=== PATIENT | male | born 1955 | race Caucasian/White ===

== ENCOUNTER 2017-03-13 10:18 | Day surgery (SDC) | payer OTHER ==
[2017-03-12 13:13] VITALS: BMI 47.5
[2017-03-13] MEDS ORDERED: Propofol 200 MG/20 ML VIAL ONE (14:01)
--- NOTE | 2017-03-13 15:07 | OP ---
DATE OF PROCEDURE: 03/13/2017 PROCEDURE: Colonoscopy. SURGEON: Brian King M.D. PREOPERATIVE DIAGNOSES: 1. Colorectal cancer screening. 2. Coronary artery disease with regard to his animal rescuer, Dr. Corey Laws. POSTOPERATIVE DIAGNOSES: 1. Two polyps, one in the cecum and one in the sigmoid colon, both about 5 mm in size, removed by sn are polypectomy and submitted to Pathology. 2. Mild diverticulosis coli. RECOMMENDATIONS: 1. Await histopathology. 2. Repeat colonoscopy in 5 years. 3. High fiber diet for diverticulosis coli. ANESTHESIA: TIVA. PROCEDURE IN DETAIL: After the patient was informed of the risk, benefits and complications of endos copy including perforation, bleeding, informed consent was obtained. The patient was brought to the endoscopy suite where he was sedated in gradual fashion. Once he was comfortable a rectal examinatio n was performed. The scope was advanced through anal canal through the colon to cecum was identified by the ileocecal valve and appendiceal orifice. There was a good prep. There was a 5 mm polyp in the cecum which was removed by snare polypectomy. It was mildly pedunculat ed. There was also a 5-7 mm polyp that was pedunculated in the sigmoid colon that was removed by sna re polypectomy as well. There was diverticulosis coli in left colon. Retroflexed views in the rectu m were normal. The scope was removed. The patient tolerated the procedure well with no complication s.
== END 2017-03-13 14:28 | disposition home or self-care (01) ==
LOC: SDC 10:18
PROVIDERS: ATTEND Internal Medicine Gastroenterology
PROC: 0DBN8ZX Excision of Sigmoid Colon, Via Natural or Artificial Opening Endoscopic, Diagnostic (ICD-10-PCS; principal; 2017-03-13)
PROC: 0DBH8ZX Excision of Cecum, Via Natural or Artificial Opening Endoscopic, Diagnostic (ICD-10-PCS; principal; 2017-03-13)
DX: Z12.11 Encounter for screening for malignant neoplasm of colon (principal); D12.0 Benign neoplasm of cecum; D12.5 Benign neoplasm of sigmoid colon; K57.30 Diverticulosis of large intestine without perforation or abscess without bleeding; I25.10 Atherosclerotic heart disease of native coronary artery without angina pectoris; I10 Essential (primary) hypertension; E66.9 Obesity, unspecified; E78.00 Pure hypercholesterolemia, unspecified; F32.9 Major depressive disorder, single episode, unspecified; N40.0 Benign prostatic hyperplasia without lower urinary tract symptoms; Z68.42 Body mass index [BMI] 45.0-49.9, adult; Z79.899 Other long term (current) drug therapy; Z98.890 Other specified postprocedural states; Z87.891 Personal history of nicotine dependence
CPT/HCPCS: 88305; J2704

== ENCOUNTER 2017-07-06 08:19 | Outpatient (CLI) | payer OTHER | END 2017-07-06 08:20 | disposition home or self-care (01) | LOC: DTY/OP 08:19 | PROVIDERS: ATTEND Specialist | DX: Z01.818 Encounter for other preprocedural examination (principal); E66.01 Morbid (severe) obesity due to excess calories | CPT/HCPCS: 97802 ==

== ENCOUNTER 2017-07-26 11:00 | Inpatient (IN) | payer OTHER ==
--- NOTE | 2017-07-24 08:20 | HP ---
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 He is at a desk most of the day. Once he came out of the field and began administrative work he has begun to gain weight. He has tried numerous weight loss e fforts without durable success. Comorbidities include hypertension, elevated cholesterol. He saw Dr Crystal Laws recently, in fact in 04/2017 had a negative cardiac stress test and was recommended to consi roe weight loss surgery. He is 5 foot 10, 373 pounds, 53 BMI. As stated above comorbidities include elevated cholesterol and hypertension. The patient has attended our weight loss seminars and is int erested in laparoscopic sleeve gastrectomy. He understands the risks and benefits associated with th is and questions have been answered. MEDICATIONS: Metoprolol 50 mg once a day, hydrochlorothiazide 25 mg once a day, irbesartan 300 mg on ce a day, fluoxetine 20 mg once a day, amlodipine 10 mg once a day, atorvastatin 40 mg a day, Uroxatr al 10 mg a day. ALLERGIES: Environmental seasonal. TOBACCO: Cessation 20 years ago. ALCOHOL: Socially. PAST SURGICAL HISTORY: Ventral hernia repair with mesh. Incision extending from above the umbilicus to below, hand surgery, deviated septum, hemorrhoidectomy, knee surgery, left meniscectomy 2001. He had a colonoscopy April 2017 that was normal at [facility]. REVIEW OF SYSTEMS: Ten point noncontributory. Recent cardiac stress test, Dr. Laws 04/2017. NOTE: The patient is followed by Dr. Summers as well as Dr. Laws. He lives in [place]. He is marrie d. PHYSICAL EXAMINATION: VITAL SIGNS: Weight 373 pounds, 5 foot 10 inches, 53 BMI, 107/59, 75, 98.8 degrees. HEENT: Unremarkable. LUNGS: Clear to auscultation. CARDIAC: Regular rate and rhythm without murmur or gallop. ABDOMEN: Obese, soft, nontender. EXTREMITIES: No ankle edema, no venous stasis changes. LYMPH: No lymphadenopathy neck, axilla, groins. NEURO: Intact. No focal deficits. SKIN: Normal. Sclerae nonicteric. ASSESSMENT AND PLAN: 1. Morbid obesity, 373 pounds, 5 foot 10 inches, 53 BMI. He is a good candidate for laparoscopic sl eeve gastrectomy. He understands the bariatric options. He understands the risk and benefits associ ated with bariatric surgery, namely laparoscopic sleeve gastrectomy. Questions have been answered. We will establish an appointment with the dietitian for dietary expectations perioperatively and an a ppointments with a clinical psychologist required in the program. He is committed to weight loss eff orts, follow up to have successful results. He understands he will need to make good food choices to ensure and maximize his success. 2. Attention deficit disorder. 3. Elevated cholesterol. 4. Hypertension. 5. Normal cardiac stress test by Dr. Laws in 04/2017. 6. 2017 normal colonoscopy.
[2017-07-26 11:09] VITALS: BMI 47.8
--- NOTE | 2017-07-27 07:36 | ADD-HP ---
ADDENDUM Jorden Fountain has completed our bariatric evaluation and attending the bariatric seminar, undergoing psychology evaluation, felt to be an excellent candidate. He has attended our dietary instructions for perioperative food selections. The patient has a long history of obesity without durable weight loss. Initial presentation, his weight is 373 pounds with BMI of 53. [place] body weight is 157 pound s. He presents for laparoscopic sleeve gastrectomy. He has obesity and social comorbidities includi ng hypertension, sleep apnea, and elevated cholesterol. He had a regular nuclear medicine stress mekhi t in April [address] Laws and was referred for bariatric surgery. He reports a normal colono scopy in the past. He has a history of smoking with cessation in 1984. 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 TOBACCO: None. ALCOHOL: None. MEDICATIONS: Metoprolol 50 mg once a day, hydrochlorothiazide 25 mg once a day, irbesartan 300 mg on ce a day, fluoxetine 20 mg a day, amlodipine 10 mg a day, atorvastatin 40 mg a day, Uroxatral 10 mg a day. ALLERGIES: Environmental Seasonal. SOCIAL HISTORY: Tobacco cessation 20 years ago. PAST SURGICAL HISTORY: Ventral hernia repair with mesh. Incision extending from above the umbilicus to below hand surgery, deviated septum, hemorrhoidectomy, knee surgery, left meniscectomy 2001, colo noscopy in April 2017, normal per [facility]. REVIEW OF SYSTEMS: Ten-point noncontributory. The patient followed Dr. Summers as well as Dr. Laws. He lives in [place]. He is . PHYSICAL EXAMINATION: VITAL SIGNS: Today patient is 5 foot. Last visit is 373 pounds, 53 BMI. Today is 353 pounds, 50 BM I. LUNGS: Clear to auscultation. CARDIAC: Regular rate and rhythm without murmur or gallop. ABDOMEN: Soft, nontender. EXTREMITIES: Unremarkable. ASSESSMENT AND PLAN: Morbid obesity. PLAN: Laparoscopic sleeve gastrectomy. Risk and benefits are discussed. Questions answered. The tanya basilio has lost 20 pounds since attending our bariatric program and he reports he has lost 25 pounds as he is 5 pounds heavier when he first presented to the seminar. His folic acid is slightly low at 5.8, borderline low vitamin B1of 69, low normal (normal 70-110). He understands risks, benefits of s urgery and we will proceed.
[2017-08-01] MEDS ORDERED: Bupivacaine HCl 0.5%/Epinephrine 1:200,000/PF 30 ml Vial ONE (06:39)
[2017-08-01] MEDS ORDERED: Fentanyl 250 MCG/5 ML VIAL ONE (07:15)
[2017-08-01] MEDS ORDERED: Scopolamine 1.5 mg/72 hour Patch ONE (07:27)
[2017-08-01] MEDS ORDERED: Ketorolac Tromethamine 30 MG/ML VIAL ONE (07:27)
[2017-08-01] MEDS ORDERED: Heparin 5,000 UNITS/ML VIAL ONE ×2 (07:27)
[2017-08-01] MEDS ORDERED: cefOXitin 2 GM, Syringe 1 ML in Sterile Water 10 ML SLOW IVP SCH ×4 (07:30)
[2017-08-01] MEDS ORDERED: Ondansetron HCl/PF 4 MG/2 ML Vial IVP PRN ×4 (09:14→18:21)
[2017-08-01] MEDS ORDERED: Morphine Sulfate 2 MG/ML SYRINGE SLOW IVP PRN ×2 (09:14)
[2017-08-01] MEDS ORDERED: Promethazine HCl 25 MG/ML VIAL SLOW IVP PRN ×2 (09:14)
[2017-08-01] MEDS ORDERED: Dextrose 50% Abboject 50 ML SYRINGE SLOW IVP PRN (09:39)
[2017-08-01] MEDS ORDERED: diphenhydrAMINE 50 MG/ML VIAL IVP PRN (09:39)
[2017-08-01] MEDS ORDERED: Morphine 4 MG/ML VIAL SLOW IVP PRN (09:39)
[2017-08-01] MEDS ORDERED: Hydrocodone-Acetamin 15 ML UDCUP PO PRN (09:39)
[2017-08-01] MEDS ORDERED: Dextrose 5% in Water 1,000 ML IV PRN (09:39)
[2017-08-01] MEDS ORDERED: hydrALAZINE 20 MG/ML VIAL SLOW IVP PRN (09:39)
--- NOTE | 2017-08-01 09:51 | OP ---
DATE OF PROCEDURE: 08/01/2017 PREOPERATIVE DIAGNOSES: Elevated cholesterol, hypertension, morbid obesity, 373 pounds, 53 BMI, init ial presentation 373, 53, BMI just prior to operation 353, 50 BMI. POSTOPERATIVE DIAGNOSES: Elevated cholesterol, hypertension, morbid obesity, 373 pounds, 53 BMI, ini tial presentation 373, 53, BMI just prior to operation 353, 50 BMI. PROCEDURES: Laparoscopic sleeve gastrectomy, 36 [place] bougie, completion upper endoscopy staple holly e within 4 cm of pylorus. Completion upper endoscopy. NOTE: Normal appearing soft malleable liver. Otherwise, abdominal cavity unremarkable. SURGEON: Dr. Kang Hirsch ANESTHESIA: General. Local 0.25% Marcaine with epinephrine 60 mL total volume used. The patient was taken to the operating room where under completion upper endoscopy visualizing the py lorus, scope passed with ease without restriction. No clips placed on the staple line to control a f ew foci of oozing. PROCEDURE IN DETAIL: The patient was taken to the operating room under general anesthesia, abdomen w as prepared with ChloraPrep, draped in routine fashion. Local anesthetic infiltrated into the skin a nd subcutaneous tissue about the op site. Upper midline abdominal incision made and pneumoperitoneum to 15 mmHg obtained with the Veress needle, replacing it with a 5 port, laparoscope inserted. Bilat eral far laterals subcostal incisions made and a 5 port placed. Bilateral upper abdominal incisions made mid clavicular lines and 15 mm port placed in left, a 12 mm port placed on the right and subxiph oid left incision made and a stab incision made with the trocar, the 5 port and a [facility] liver ret ractor inserted intraabdominally under laparoscopic visualization reflecting the left lobe of liver a nteriorly. Gastrocolic ligament taken down adjacent to the greater curvature distal stomach, dividin g this along the greater curvature, freeing the greater curvature up towards the angle of His. Angle of His was visualized. Posterior stomach adhesions taken down with the LigaSure. Gastrocolic ligam ent further taken down within 4 cm of the pylorus using the LigaSure. A #36 [place] bougie placed by Anesthesia orally under laparoscopic visualization directed to the pylorus along the lesser curvature and the stomach sleeve gastrectomy performed by firing the initial staple green load Endo-LENIN staple r and subsequent fires blue load against the bougie, allowing adequate space at the incisura and the angle of His. Once the stomach was completely divided, it was removed from the 15 port site and the 15 port site fascia approximated with GraNee needle 0 Vicryl suture under laparoscopic visualization. Good hemostasis obtained with clips placed on the staple line. I then went up to the head of the table and performed an upper endoscopy placing the endoscope per le ft os under direct visualization throughout the esophagus through the stomach sleeve, visualizing the pylorus without restriction without bleeding, removing the scope, decompressing the stomach, noting a normal esophagus. At this point, abdominal cavity irrigated and irrigant evacuated. Liver retract or removed. Good hemostasis noted. Irrigant and pneumoperitoneum evacuated. All this instruments r emoved and all skin incisions approximated with interrupted subdermal 4-0 Monocryl and DermaGlue appl ied.
[2017-08-01] MEDS ORDERED: Fentanyl 100 MCG/2 ML VIAL ONE ×2 (09:56→10:19)
[2017-08-01] MEDS ORDERED: [UNRECOGNIZED DRUG - REMARK] EA EYE PRN (10:15)
[2017-08-01] MEDS ORDERED: PHENYLEPHRINE-NS 100 MCG/ML 10 ML SYRINGE ONE (11:16)
[2017-08-01] MEDS ORDERED: PROPOFOL 200 MG/20 ML VIAL ONE (11:16)
[2017-08-01] MEDS ORDERED: Ondansetron HCl/PF 4 MG/2 ML Vial ONE (11:16)
[2017-08-01] MEDS ORDERED: Succinylcholine Chloride 20 MG/ML 10 ml SYRINGE FS ONE (11:16)
[2017-08-01] MEDS ORDERED: Glycopyrrolate 0.2 MG/ML 5 ML SYRINGE ONE (11:16)
[2017-08-01] MEDS ORDERED: ePHEDrine/0.9% NaCl/PF SYRINGE 50 mg/10 ml ONE (11:16)
[2017-08-01] MEDS ORDERED: Lidocaine 1% PF 5 ML VIAL ONE (11:16)
[2017-08-01] MEDS ORDERED: Pantoprazole 40 MG VIAL IVP SCH ×2 (12:00)
[2017-08-01] MEDS: Ketorolac Tromethamine 30 MG/ML VIAL IVP SCH ×3 (12:16→23:34)
[2017-08-01] MEDS: Acetaminophen 1,000 MG in Premix Bag 1 BAG IVPB SCH ×3 (12:17→23:33)
[2017-08-01] MEDS ORDERED: Ondansetron ODT 8 MG TAB SL PRN (18:21)
[2017-08-01] MEDS ORDERED: Ondansetron ODT 4 MG TAB PO PRN ×2 (18:21→18:29)
[2017-08-01] MEDS ORDERED: Ondansetron ODT 8 MG TAB PO PRN ×2 (18:21→18:29)
[2017-08-01] MEDS ORDERED: Metoclopramide HCl 10 MG/2 ML VIAL IVP PRN (18:22)
[2017-08-01] MEDS: D5 1/2 NS w/20 mEq KCL 1,000 ML IV SCH ×3 (18:44→23:38)
[2017-08-01] MEDS: Morphine 4 MG/ML VIAL SLOW IVP PRN (20:21)
[2017-08-01] MEDS ORDERED: Enoxaparin Sodium 40 MG/0.4 ML SYRINGE SC SCH (21:00)
[2017-08-02] MEDS: Morphine 4 MG/ML VIAL SLOW IVP PRN (02:20)
[2017-08-02 05:01] LABS: #Monocytes 0.6 thou/uL (0.11-0.59); #Neutrophils 7.1 thou/uL (1.40-6.50); %Basophils 0.2 % (0.0-1.0); %Eosinophils 0.3 % (0.0-10.0); %Monocytes 7.3 % (0.0-10.0); %Neutrophils 81.2 % (42.0-75.0); Hemoglobin 12.5 g/dL (14.0-18.0); Mean Corpuscular HGB CONC 33.1 g/dL (32.0-36.0); Mean Corpuscular Hemoglobin 29.8 pg (27.0-31.0); Mean Corpuscular Volume 89.8 fl (80.0-94.0); Mean Platelet Volume 8.6 fL (7.4-10.4); Platelet Count 226 thou/uL (130-400); RBC Distribution Width 12.1 % (11.5-14.5); Red Blood Cell (RBC) Count 4.21 mill/uL (4.70-6.10); White Blood Cell (WBC) Count 8.8 thou/uL (4.8-10.8)
[2017-08-02 05:07] LABS: Anion Gap 6 mmol/L (10-20); BUN (Urea Nitrogen) 19 mg/dL (8.4-25.7); Calc. Creatinine Clearance 168 mL/min (70-130); Carbon Dioxide 30 mmol/L (23-31); Chloride 104 mmol/L (98-107); Estimated GFR-MDRD 73; Glucose 120 mg/dL (80-115); Potassium 3.9 mmol/L (3.5-5.1); Sodium 136 mmol/L (136-145)
[2017-08-02] MEDS: Ketorolac Tromethamine 30 MG/ML VIAL IVP SCH (05:11)
[2017-08-02] MEDS: Acetaminophen 1,000 MG in Premix Bag 1 BAG IVPB SCH (05:12)
[2017-08-02] MEDS ORDERED: traMADol HCl 50 MG TAB PO PRN ×2 (08:00)
[2017-08-02 08:07] VITALS: BP 107/69; TEMP 98
[2017-08-02] MEDS ORDERED: Pantoprazole 40 MG VIAL IVP SCH ×2 (09:00)
[2017-08-02] MEDS ORDERED: FLUoxetine HCl 20 MG CAP PO SCH (09:00)
[2017-08-02] MEDS ORDERED: Amlodipine 10 MG TAB PO SCH (09:00)
[2017-08-02] MEDS ORDERED: Hydrocodone-Acetamin 15 ML UDCUP PO PRN (10:00)
[2017-08-02] MEDS ORDERED: Acetaminophen 500 MG TAB PO PRN (12:00)
--- NOTE | 2017-08-02 12:04 | PRG ---
DATE OF SERVICE: 08/02/2017 SUBJECTIVE: Mr. Fountain is doing well after laparoscopic sleeve gastrectomy today. He denies any n ausea or vomiting. He is tolerating liquids. OBJECTIVE: VITAL SIGNS: 98 degrees, 51, 18, 107/69. LUNGS: Clear to auscultation. CARDIAC: Regular rate and rhythm. No murmur, rub, or gallop. ABDOMEN: Soft, nontender. Surgical wounds clean and dry. LABORATORY DATA: This morning, his white count was 8, hemoglobin 12. Basic metabolic profile was no rmal. ASSESSMENT AND PLAN: Doing well. We will plan on discharge home later this morning. Diet and activ ity as tolerated. There are no restrictions in lifting. Diet per bariatric post-surgical protocol. He will resume his metoprolol, hold his hydrochlorothiazide for now, resume his Prozac, atorvastatin , irbesartan, and eye drops. Of course, he has a prescription for Ultram and [place] elixir as needed. He does not have to crush his pills. Follow up in my office in 1-2 weeks per appointment.
--- NOTE | 2017-08-02 16:49 | DIS ---
DATE OF ADMISSION: 08/01/2017 DATE OF DISCHARGE: 08/02/2017 DISCHARGE DIAGNOSES: Morbid obesity. Preoperative BMI 53, 373 pounds, just prior to operation after preoperative diet 50 BMI, 353 pounds. COMORBIDITIES: Elevated cholesterol and hypertension. DISCHARGE MEDICATIONS: We will hold his hydrochlorothiazide, resume his metoprolol, hold his amlodip ine until his blood pressure increases and then he can resume that, resume his Prozac, and irbesartan . He was given a prescription for Ultram 50 mg 1-2 p.o. q.i.d. p.r.n. pain #22 refills, and [place] el ixir should he need it. No lifting restrictions. I encouraged him to be active, ambulating. Advanc e diet per post-surgical bariatric protocol. HISTORY: A 62-year-old male presenting interested in bariatric surgery, attending our seminar, visit ing with the dietitian and psychologist, and obtained cardiac clearance. Underwent a laparoscopic sl eeve gastrectomy and postoperatively did well. Discharged home with the above regimen. Follow up in my office in 1-2 weeks.
== END 2017-08-02 12:16 | disposition home or self-care (01) | DRG 621 ==
LOC: SURG A 08-01 06:08 → SURG B 08-01 10:10
PROVIDERS: ADMIT Specialist; ATTEND Specialist
PROC: 0DB64Z3 Excision of Stomach, Percutaneous Endoscopic Approach, Vertical (ICD-10-PCS; principal; 2017-08-01)
DX: E66.01 Morbid (severe) obesity due to excess calories (principal); E78.00 Pure hypercholesterolemia, unspecified; I10 Essential (primary) hypertension; G47.30 Sleep apnea, unspecified; Z87.891 Personal history of nicotine dependence; F98.8 Other specified behavioral and emotional disorders with onset usually occurring in childhood and adolescence; Z68.43 Body mass index [BMI] 50.0-59.9, adult
CPT/HCPCS: 36415; 80048; 85025; 88307; 88312; A4216; C9113; J0131; J0670; J0694; J1644; J1650; J1885; J2001; J2270; J2405; J2704; J3010

== ENCOUNTER 2021-09-27 11:24 | Outpatient (CLI) | payer MEDICARE, OTHER ==
[2021-09-27 12:00] LABS: Hemoglobin 15.3 g/dL (13.5-17.5); Mean Corpuscular HGB CONC 34.7 g/dL (32.0-36.0); Mean Corpuscular Hemoglobin 31.7 pg (27.0-33.0); Mean Corpuscular Volume 91.5 fl (81.2-95.1); Mean Platelet Volume 10.8 fl (7.4-10.4); Platelet Count 176 10x3/uL (150-450); RBC Distribution Width 12.4 % (11.5-14.5); Red Blood Cell (RBC) Count 4.82 10x6/uL (4.32-5.72); White Blood Cell (WBC) Count 5.5 10x3/uL (3.5-10.5)
[2021-09-27 12:20] LABS: Prothrombin Time 10.6 sec (9.5-12.1)
[2021-09-27 12:23] LABS: Anion Gap 15 mmol/L (10-20); BUN (Urea Nitrogen) 20 mg/dL (8.4-25.7); Calc. Creatinine Clearance 0 mL/min (70-130); Calcium 9.1 mg/dL (7.8-10.44); Carbon Dioxide 27 mmol/L (23-31); Chloride 102 mmol/L (98-107); Glucose 92 mg/dL (80-115); Potassium 4.1 mmol/L (3.5-5.1); Sodium 140 mmol/L (136-145)
== END 2021-09-27 11:25 | disposition home or self-care (01) ==
LOC: LABBT 11:24
PROVIDERS: ATTEND Internal Medicine Cardiovascular Disease
DX: Z01.812 Encounter for preprocedural laboratory examination (principal); I48.0 Paroxysmal atrial fibrillation; Z20.822 Contact with and (suspected) exposure to COVID-19
CPT/HCPCS: 80048; 85027; 85610; U0003; U0005

== ENCOUNTER 2021-09-30 07:07 | Day surgery (SDC) | payer MEDICARE ==
[2021-09-27 13:35] VITALS: BMI 39.4
[2021-09-30] MEDS ORDERED: Heparin 10,000 UNITS/ 10 ML VIAL ONE (07:54)
[2021-09-30] MEDS ORDERED: Heparin 25,000 units/D5W 500 ML ONE (07:54)
[2021-09-30] MEDS ORDERED: Protamine Sulfate 50 MG/5 ML VIAL ONE (07:54)
[2021-09-30] MEDS ORDERED: Midazolam HCl 2 mg/2 ml Vial ONE (09:13)
[2021-09-30] MEDS ORDERED: Fentanyl 100 MCG/2 ML VIAL ONE ×2 (09:13→11:23)
[2021-09-30] MEDS ORDERED: Phenylephrine 10 MG/ML VIAL ONE (09:54)
[2021-09-30] MEDS ORDERED: SUGAMMADEX SODIUM 200 MG/2 ML VIAL ONE (11:18)
== END 2021-09-30 17:53 | disposition home or self-care (01) ==
LOC: SDC 07:07
PROVIDERS: ATTEND Internal Medicine Cardiovascular Disease
PROC: B246ZZ4 Ultrasonography of Right and Left Heart, Transesophageal (ICD-10-PCS; principal; 2021-09-30)
PROC: 02583ZZ Destruction of Conduction Mechanism, Percutaneous Approach (ICD-10-PCS; 2021-09-30)
PROC: 02K83ZZ Map Conduction Mechanism, Percutaneous Approach (ICD-10-PCS; 2021-09-30)
DX: I48.0 Paroxysmal atrial fibrillation (principal); I48.3 Typical atrial flutter; I11.9 Hypertensive heart disease without heart failure; I49.5 Sick sinus syndrome; M19.90 Unspecified osteoarthritis, unspecified site; E78.00 Pure hypercholesterolemia, unspecified; G47.33 Obstructive sleep apnea (adult) (pediatric); Z79.01 Long term (current) use of anticoagulants; Z79.899 Other long term (current) drug therapy; Z98.84 Bariatric surgery status
CPT/HCPCS: 85347; 93005; 93312; 93613; 93622; 93655; 93656; 93662; C1730; C1731; C1732; C1759; C1760; C1766; C1894; C2630; J1644; J2250; J2370; J2720; J3010

== ENCOUNTER 2022-05-25 08:39 | Outpatient (CLI) | payer MEDICARE | END 2022-05-25 08:40 | disposition home or self-care (01) | LOC: ULT 08:39 | PROVIDERS: ATTEND Internal Medicine Cardiovascular Disease | DX: I10 Essential (primary) hypertension (principal); K76.89 Other specified diseases of liver | CPT/HCPCS: 76770; 93975 ==